=== PATIENT | male | born 2000 | race Caucasian/White ===

== ENCOUNTER 2021-02-16 14:41 | Emergency (ER) | payer OTHER ==
[~2021-02-16 14:41] MED LIST: FLEXERIL10 MG PO; IBUPROFEN800 MG PO; MEDROL 4MG DOSEP4 MG PO
[2021-02-16 15:28] LABS: BASOPHIL 0.6 % (0-2); EOSINOPHIL 1.9 % (0-5); HCT 45.6 % (42.0-52.0); HGB 15.4 g/dl (13.2-18.0); LYMPHOCYTE 17.3 % (15-48); MCH 28.7 pg (25.0-31.0); MCHC 33.8 g/dL (32.0-36.0); MCV 85.1 fL (78.0-100.0); MONOCYTE 9.7 % (0-12); MPV 10.3 fL (6.0-9.5); NEUTROPHIL 70.2 % (41-80); NRBC 0; PLT 210 K/uL (150-400); RBC 5.36 M/uL (4.70-6.00); RDW 13.3 % (11.5-14.0); WBC 6.8 K/uL (4.0-10.5)
[2021-02-16] MEDS ORDERED: VALTREX1000 MG PO (15:39)
[2021-02-16] MEDS ORDERED: DICLOFENAC SODI75 MG PO (15:39)
[2021-02-16] MEDS ORDERED: DOXYCYCLINE MO100 MG PO (15:39)
== END 2021-02-16 15:50 | disposition home or self-care (01) ==
LOC: FER 14:41
PROVIDERS: Emergency Medicine
DX: L73.9 Follicular disorder, unspecified (principal)
CPT/HCPCS: 36415; 85025; 87070; 87205; 99283